=== PATIENT | female | born 1935 | race African-American/Black ===

== ENCOUNTER 2017-05-23 02:27 | Inpatient (IN) | payer MEDICARE ==
[2017-05-23] MEDS: DIPHTH,PERTUSS(ACELL),TET TOX 0.5 ML DISP.SYRIN. VAX IM (03:49)
[2017-05-23] MEDS: LIDOCAINE/EPI/TETRACAINE TOPICAL GEL 3 ML. TP (03:50)
[2017-05-23 03:52] LABS: BASO # 0.1 x10^3/uL (0.0-0.2); BASO % 0 % (0-3); EOS # 0.1 x10^3/uL (0.0-0.7); EOS % 0 % (0-3); HEMATOCRIT 30.8 % (36.0-47.0); HEMOGLOBIN 10.6 g/dL (12.0-15.5); LYMPH # 1.1 x10^3/uL (1.0-4.8); LYMPH % 5 % (24-48); MEAN CORPUSCULAR HEMOGLOBIN 30 pg (25-35); MEAN CORPUSCULAR HGB CONC 35 g/dL (31-37); MEAN CORPUSCULAR VOLUME 86 fL (79-100); MONO # 0.8 x10^3/uL (0.0-1.1); MONO % 4 % (0-9); NEUT # 19.7 x10^3uL (1.8-7.7); NEUT % 91 % (31-73); PLATELET COUNT 433 x10^3/uL (140-400); RED BLOOD COUNT 3.59 x10^6/uL (3.50-5.40); RED CELL DISTRIBUTION WIDTH 14.9 % (11.5-14.5); WHITE BLOOD COUNT 21.8 x10^3/uL (4.0-11.0)
[2017-05-23 03:57] LABS: INR 1.1 (0.8-1.1); PARTIAL THROMBOPLASTIN TIME 30 SEC (24-38); PROTHROMBIN TIME PATIENT 13.4 SEC (11.7-14.0)
[2017-05-23 03:58] LABS: ANION GAP 10 (6-14); BLOOD UREA NITROGEN 9 mg/dL (7-20); BUN/CREATININE RATIO 18 (6-20); CALCIUM 9.4 mg/dL (8.5-10.1); CARBON DIOXIDE 29 mmol/L (21-32); CHLORIDE 103 mmol/L (98-107); CREATININE 0.5 mg/dL (0.6-1.0); GFR 143.6; GLUCOSE 90 mg/dL (70-99); POTASSIUM 3.4 mmol/L (3.5-5.1); SODIUM 142 mmol/L (136-145)
[2017-05-23 03:59] LABS: ADD MAN DIFF? YES
[2017-05-23 04:04] LABS: ALBUMIN 2.9 g/dL (3.4-5.0); ALBUMIN/GLOBULIN RATIO 0.9 (1.0-1.7); ALK PHOS 178 U/L (46-116); ALT (SGPT) 75 U/L (14-59); AST (SGOT) 30 U/L (15-37); TOTAL BILIRUBIN 0.3 mg/dL (0.2-1.0); TOTAL PROTEIN 6.2 g/dL (6.4-8.2)
[2017-05-23 04:06] LABS: TROPONINI 0.025 ng/mL (0.000-0.055)
[2017-05-23 04:09] LABS: NT-PRO BNP 411 pg/mL (0-449)
[2017-05-23] MEDS ORDERED: ONDANSETRON PF 4 MG/2 ML VIAL. IV ×2 (05:45→09:00)
[2017-05-23] MEDS ORDERED: ACETAMINOPHEN 325 MG TABLET. PO ×2 (05:45→09:00)
[2017-05-23] MEDS ORDERED: MORPHINE SULFATE 2 MG/ML DISP.SYRIN. IV (05:45)
[2017-05-23 06:16] LABS: BILIRUBIN,URINE NEGATIVE (NEG); CLARITY,URINE CLEAR; COLOR,URINE YELLOW; GLUCOSE,URINE NEGATIVE (NEG); NITRITE,URINE POSITIVE (NEG); PROTEIN,URINE NEGATIVE (NEG-TRACE)
[2017-05-23 06:34] LABS: BACTERIA,URINE MANY /HPF (0-FEW); RBC,URINE 0 /HPF (0-2); SQUAMOUS EPITHELIAL CELL,UR OCC /LPF
[2017-05-23] MEDS ORDERED: MAGNESIUM HYDROXIDE 2,400 MG/30 ML ORAL.SUSP. PO (09:00)
[2017-05-23] MEDS ORDERED: CALCIUM CARBONATE 500 MG TAB.CHEW PO (09:15)
[2017-05-23] MEDS: FLU VACC QS2017-18 (36MOS+)/PF 0.5 ML SYRINGE. VAX IM (12:00)
[2017-05-23 12:33] LABS: % BANDS 8 % (0-9); % LYMPHS 5 % (24-48); % MONOS 2 % (0-10); % SEGS 85 % (35-66); PLT ESTIMATE INCREASED (ADEQUATE)
[2017-05-23] MEDS: DONEPEZIL HCL 10 MG TABLET. PO (14:26)
[2017-05-23] MEDS: DRONABINOL 2.5 MG CAPSULE. PO ×2 (14:26→17:03)
[2017-05-23] MEDS: cefTRIAXone IV Push 1 GM VIAL. IVP (14:26)
[2017-05-23] MEDS: ENOXAPARIN 30 MG/0.3 ML SYRINGE. SQ (14:26)
[2017-05-23] MEDS: FAMOTIDINE 20 MG TABLET. PO (14:27)
[2017-05-23] MEDS: POTASSIUM CHLORIDE 20 MEQ TABLET.ER. PO (14:27)
[2017-05-24 05:58] LABS: ADD MAN DIFF? NO
[2017-05-24 06:17] LABS: ANION GAP 6 (6-14); BLOOD UREA NITROGEN 10 mg/dL (7-20); CALCIUM 8.6 mg/dL (8.5-10.1); CARBON DIOXIDE 30 mmol/L (21-32); CHLORIDE 104 mmol/L (98-107); CREATININE 0.5 mg/dL (0.6-1.0); GFR 143.6; GLUCOSE 101 mg/dL (70-99); SODIUM 140 mmol/L (136-145)
[2017-05-24 06:23] LABS: BASO # 0.1 x10^3/uL (0.0-0.2); BASO % 0 % (0-3); EOS # 0.1 x10^3/uL (0.0-0.7); EOS % 1 % (0-3); HEMATOCRIT 31.2 % (36.0-47.0); HEMOGLOBIN 10.6 g/dL (12.0-15.5); LYMPH % 6 % (24-48); MEAN CORPUSCULAR HEMOGLOBIN 29 pg (25-35); MEAN CORPUSCULAR HGB CONC 34 g/dL (31-37); MEAN CORPUSCULAR VOLUME 87 fL (79-100); MONO # 0.5 x10^3/uL (0.0-1.1); MONO % 3 % (0-9); NEUT # 15.1 x10^3uL (1.8-7.7); NEUT % 90 % (31-73); PLATELET COUNT 419 x10^3/uL (140-400); RED CELL DISTRIBUTION WIDTH 15.5 % (11.5-14.5); WHITE BLOOD COUNT 16.8 x10^3/uL (4.0-11.0)
[2017-05-24 06:57] LABS: PROCALCITONIN < 0.10 ng/mL (0.00-0.10)
[2017-05-24] MEDS: cefTRIAXone IV Push 1 GM VIAL. IVP (09:32)
[2017-05-24] MEDS: DONEPEZIL HCL 10 MG TABLET. PO (09:33)
[2017-05-24] MEDS: ENOXAPARIN 30 MG/0.3 ML SYRINGE. SQ (09:33)
[2017-05-24] MEDS: FAMOTIDINE 20 MG TABLET. PO (09:33)
[2017-05-24] MEDS: DRONABINOL 2.5 MG CAPSULE. PO ×2 (12:13→17:50)
[2017-05-24] MEDS: LACTOBACILLUS RHAMNOSUS GG 1 CAPSULE. PO (20:45)
[2017-05-24 21:10] LABS: MRSA BY PCR Negative (Negative)
[2017-05-25 05:46] LABS: ADD MAN DIFF? NO
[2017-05-25 06:05] LABS: BASO % 0 % (0-3); EOS % 0 % (0-3); HEMATOCRIT 28.9 % (36.0-47.0); LYMPH # 0.5 x10^3/uL (1.0-4.8); LYMPH % 3 % (24-48); MEAN CORPUSCULAR HEMOGLOBIN 30 pg (25-35); MEAN CORPUSCULAR HGB CONC 35 g/dL (31-37); MEAN CORPUSCULAR VOLUME 86 fL (79-100); MONO # 0.8 x10^3/uL (0.0-1.1); MONO % 4 % (0-9); NEUT # 18.3 x10^3uL (1.8-7.7); NEUT % 93 % (31-73); PLATELET COUNT 378 x10^3/uL (140-400); RED BLOOD COUNT 3.36 x10^6/uL (3.50-5.40); RED CELL DISTRIBUTION WIDTH 15.6 % (11.5-14.5); WHITE BLOOD COUNT 19.7 x10^3/uL (4.0-11.0)
[2017-05-25] MEDS: FAMOTIDINE 20 MG TABLET. PO (09:14)
[2017-05-25] MEDS: DONEPEZIL HCL 10 MG TABLET. PO (09:14)
[2017-05-25] MEDS: LACTOBACILLUS RHAMNOSUS GG 1 CAPSULE. PO ×2 (09:14→20:49)
[2017-05-25] MEDS: ENOXAPARIN 30 MG/0.3 ML SYRINGE. SQ (09:14)
[2017-05-25] MEDS: cefTRIAXone IV Push 1 GM VIAL. IVP (09:25)
[2017-05-25] MEDS: MEROPENEM IV Push 1 GM VIAL. IVP ×2 (12:43→20:55)
[2017-05-25] MEDS: DRONABINOL 2.5 MG CAPSULE. PO ×2 (12:48→17:10)
[2017-05-25] MEDS ORDERED: MEROPENEM 1 GM in IV NORMAL SALINE 100ML 100 ML IV (14:00)
[2017-05-26 05:15] LABS: ADD MAN DIFF? NO
[2017-05-26 05:34] LABS: BASO % 0 % (0-3); EOS % 0 % (0-3); HEMATOCRIT 27.9 % (36.0-47.0); HEMOGLOBIN 9.5 g/dL (12.0-15.5); LYMPH # 0.4 x10^3/uL (1.0-4.8); LYMPH % 2 % (24-48); MEAN CORPUSCULAR HEMOGLOBIN 29 pg (25-35); MEAN CORPUSCULAR HGB CONC 34 g/dL (31-37); MEAN CORPUSCULAR VOLUME 84 fL (79-100); MONO # 0.8 x10^3/uL (0.0-1.1); MONO % 4 % (0-9); NEUT # 19.9 x10^3uL (1.8-7.7); NEUT % 94 % (31-73); PLATELET COUNT 356 x10^3/uL (140-400); RED BLOOD COUNT 3.32 x10^6/uL (3.50-5.40); RED CELL DISTRIBUTION WIDTH 15.4 % (11.5-14.5); WHITE BLOOD COUNT 21.2 x10^3/uL (4.0-11.0)
[2017-05-26] MEDS: FAMOTIDINE 20 MG TABLET. PO (09:00)
[2017-05-26] MEDS: DONEPEZIL HCL 10 MG TABLET. PO (09:00)
[2017-05-26] MEDS: LACTOBACILLUS RHAMNOSUS GG 1 CAPSULE. PO ×2 (09:00→20:57)
[2017-05-26] MEDS: ENOXAPARIN 30 MG/0.3 ML SYRINGE. SQ (09:21)
[2017-05-26] MEDS: MEROPENEM IV Push 1 GM VIAL. IVP ×2 (09:21→20:57)
[2017-05-26] MEDS: DRONABINOL 2.5 MG CAPSULE. PO ×2 (11:30→16:30)
[2017-05-26] MEDS: AMINO AC 3%/ELECTROLYTE/GLYCER 1,000 ML IV (14:36)
[2017-05-27] MEDS: AMINO AC 3%/ELECTROLYTE/GLYCER 1,000 ML IV ×2 (02:54→14:25)
[2017-05-27] MEDS: LACTOBACILLUS RHAMNOSUS GG 1 CAPSULE. PO ×2 (09:00→21:00)
[2017-05-27] MEDS: FAMOTIDINE 20 MG TABLET. PO (09:00)
[2017-05-27] MEDS: DONEPEZIL HCL 10 MG TABLET. PO (09:00)
[2017-05-27] MEDS: MEROPENEM IV Push 1 GM VIAL. IVP (09:48)
[2017-05-27] MEDS: DRONABINOL 2.5 MG CAPSULE. PO ×2 (10:58→15:37)
[2017-05-27] MEDS: ENOXAPARIN 30 MG/0.3 ML SYRINGE. SQ (11:52)
[2017-05-27] MEDS: cefTRIAXone IV Push 1 GM VIAL. IVP (14:25)
[2017-05-28] MEDS: AMINO AC 3%/ELECTROLYTE/GLYCER 1,000 ML IV ×2 (03:55→14:27)
[2017-05-28] MEDS: LACTOBACILLUS RHAMNOSUS GG 1 CAPSULE. PO ×2 (09:05→20:27)
[2017-05-28] MEDS: DONEPEZIL HCL 10 MG TABLET. PO (09:05)
[2017-05-28] MEDS: FAMOTIDINE 20 MG TABLET. PO (09:05)
[2017-05-28] MEDS: ENOXAPARIN 30 MG/0.3 ML SYRINGE. SQ (09:52)
[2017-05-28] MEDS: DRONABINOL 2.5 MG CAPSULE. PO ×2 (11:30→15:31)
[2017-05-28] MEDS: cefTRIAXone IV Push 1 GM VIAL. IVP (14:27)
[2017-05-29] MEDS: AMINO AC 3%/ELECTROLYTE/GLYCER 1,000 ML IV ×2 (03:00→16:02)
[2017-05-29] MEDS: DONEPEZIL HCL 10 MG TABLET. PO (08:39)
[2017-05-29] MEDS: FAMOTIDINE 20 MG TABLET. PO (08:39)
[2017-05-29] MEDS: LACTOBACILLUS RHAMNOSUS GG 1 CAPSULE. PO (08:39)
[2017-05-29] MEDS: ENOXAPARIN 30 MG/0.3 ML SYRINGE. SQ (08:39)
[2017-05-29] MEDS: DRONABINOL 2.5 MG CAPSULE. PO ×2 (11:07→16:02)
[2017-05-29] MEDS: cefTRIAXone IV Push 1 GM VIAL. IVP (13:55)
[2017-05-29] MEDS ORDERED: DEXTROSE 50% 25 GM / 50ML DISP.SYRIN. IV (20:51)
[2017-05-29 20:59] LABS: POC GLUCOSE 34 mg/dL (70-99)
[2017-05-29 20:59] LABS: POC GLUCOSE 35 mg/dL (70-99)
[2017-05-29] MEDS: DEXTROSE 50% 25 GM / 50ML DISP.SYRIN. IV (21:08)
[2017-05-29 21:47] LABS: POC GLUCOSE 24 mg/dL (70-99)
[2017-05-29 21:47] LABS: POC GLUCOSE 31 mg/dL (70-99)
[2017-05-29 21:47] LABS: POC GLUCOSE 93 mg/dL (70-99)
[2017-05-29 22:13] LABS: GLUCOSE 183 mg/dL (70-99)
[2017-05-30] MEDS: AMINO AC 3%/ELECTROLYTE/GLYCER 1,000 ML IV ×2 (04:04→16:13)
[2017-05-30 08:04] LABS: POC GLUCOSE 62 mg/dL (70-99)
[2017-05-30] MEDS: FAMOTIDINE 20 MG TABLET. PO (09:00)
[2017-05-30] MEDS: DONEPEZIL HCL 10 MG TABLET. PO (09:00)
[2017-05-30] MEDS: ENOXAPARIN 30 MG/0.3 ML SYRINGE. SQ (09:18)
[2017-05-30] MEDS: DEXTROSE 50% 25 GM / 50ML DISP.SYRIN. IV (09:24)
[2017-05-30 09:26] LABS: POC GLUCOSE 53 mg/dL (70-99)
[2017-05-30 11:12] LABS: POC GLUCOSE 68 mg/dL (70-99)
[2017-05-30] MEDS: DRONABINOL 2.5 MG CAPSULE. PO ×2 (11:30→16:15)
[2017-05-30 16:27] LABS: POC GLUCOSE 11 mg/dL (70-99)
[2017-05-30 17:28] LABS: GLUCOSE 82 mg/dL (70-99)
[2017-05-31 08:28] LABS: POC GLUCOSE 93 mg/dL (70-99)
[2017-05-31] MEDS: ENOXAPARIN 30 MG/0.3 ML SYRINGE. SQ (09:55)
[2017-05-31] MEDS: AMINO AC 3%/ELECTROLYTE/GLYCER 1,000 ML IV ×2 (09:56→19:54)
[2017-05-31] MEDS: DONEPEZIL HCL 10 MG TABLET. PO (09:57)
[2017-05-31] MEDS: FAMOTIDINE 20 MG TABLET. PO (09:57)
[2017-05-31] MEDS: DRONABINOL 2.5 MG CAPSULE. PO ×2 (11:22→16:20)
[2017-05-31] MEDS: DEXTROSE 50% 25 GM / 50ML DISP.SYRIN. IV ×2 (11:32→12:23)
[2017-05-31 12:16] LABS: POC GLUCOSE 18 mg/dL (70-99)
[2017-05-31 12:54] LABS: ANION GAP 3 (6-14); BLOOD UREA NITROGEN 15 mg/dL (7-20); CALCIUM 7.8 mg/dL (8.5-10.1); CARBON DIOXIDE 30 mmol/L (21-32); CHLORIDE 100 mmol/L (98-107); CREATININE 0.4 mg/dL (0.6-1.0); GFR 185.8; GLUCOSE 369 mg/dL (70-99); POTASSIUM 4.1 mmol/L (3.5-5.1); SODIUM 133 mmol/L (136-145)
[2017-05-31 13:05] LABS: POC GLUCOSE 124 mg/dL (70-99); POC GLUCOSE 126 mg/dL (70-99)
[2017-05-31 13:30] LABS: POC GLUCOSE 107 mg/dL (70-99)
[2017-05-31 16:26] LABS: POC GLUCOSE 31 mg/dL (70-99)
[2017-05-31 16:51] LABS: GLUCOSE 73 mg/dL (70-99)
[2017-05-31 21:19] LABS: POC GLUCOSE 47 mg/dL (70-99)
[2017-05-31 21:22] LABS: GLUCOSE 79 mg/dL (70-99)
[2017-06-01] MEDS: AMINO AC 3%/ELECTROLYTE/GLYCER 1,000 ML IV ×2 (06:04→17:45)
[2017-06-01] MEDS: DONEPEZIL HCL 10 MG TABLET. PO (08:59)
[2017-06-01] MEDS: ENOXAPARIN 30 MG/0.3 ML SYRINGE. SQ (08:59)
[2017-06-01] MEDS: FAMOTIDINE 20 MG TABLET. PO (08:59)
[2017-06-01] MEDS: DRONABINOL 2.5 MG CAPSULE. PO ×2 (10:51→15:21)
[2017-06-01 21:15] LABS: POC GLUCOSE 58 mg/dL (70-99)
[2017-06-01 21:36] LABS: POC GLUCOSE 71 mg/dL (70-99)
[2017-06-01 21:36] LABS: POC GLUCOSE 69 mg/dL (70-99)
[2017-06-02] MEDS ORDERED: fentaNYL PF VIAL 100 MCG/2 ML VIAL IV ×2 (07:00)
[2017-06-02] MEDS ORDERED: MORPHINE SULFATE 2 MG/ML DISP.SYRIN. IV (07:00)
[2017-06-02] MEDS ORDERED: LIDOCAINE 1% PF 2 ML VIAL. ID (07:00)
[2017-06-02] MEDS ORDERED: PROCHLORPERAZINE 10 MG/2 ML VIAL. IV (07:00)
[2017-06-02] MEDS: IV RINGERS,LACTATED 1000ML 1,000 ML IV ×3 (07:00→18:30)
[2017-06-02] MEDS ORDERED: HYDROmorphone 2 MG/ML VIAL IV (07:00)
[2017-06-02 08:29] LABS: POC GLUCOSE 68 mg/dL (70-99)
[2017-06-02] MEDS: ENOXAPARIN 30 MG/0.3 ML SYRINGE. SQ ×2 (08:51→10:21)
[2017-06-02] MEDS: FAMOTIDINE 20 MG TABLET. PO ×2 (08:51→10:21)
[2017-06-02] MEDS: DONEPEZIL HCL 10 MG TABLET. PO (08:51)
[2017-06-02] MEDS ORDERED: PROPOFOL 20 ML IV (09:22)
[2017-06-02] MEDS ORDERED: LIDOCAINE 2% 100 MG/5 ML SYRINGE. (09:22)
[2017-06-02] MEDS: AMINO AC 3%/ELECTROLYTE/GLYCER 1,000 ML IV ×2 (10:33→21:55)
[2017-06-02 12:32] LABS: POC GLUCOSE 10 mg/dL (70-99)
[2017-06-03] MEDS: IV RINGERS,LACTATED 1000ML 1,000 ML IV ×3 (04:30→21:37)
[2017-06-03] MEDS: AMINO AC 3%/ELECTROLYTE/GLYCER 1,000 ML IV ×2 (08:07→22:00)
[2017-06-04] MEDS: PANTOPRAZOLE IV PUSH 40 MG VIAL. IVP (09:29)
[2017-06-04] MEDS: IV RINGERS,LACTATED 1000ML 1,000 ML IV ×2 (10:30→20:30)
[2017-06-04] MEDS: AMINO AC 3%/ELECTROLYTE/GLYCER 1,000 ML IV ×2 (11:25→23:00)
[2017-06-04 21:14] LABS: POC GLUCOSE 67 mg/dL (70-99)
[2017-06-05] MEDS: IV RINGERS,LACTATED 1000ML 1,000 ML IV ×3 (05:29→17:41)
[2017-06-05] MEDS: PANTOPRAZOLE IV PUSH 40 MG VIAL. IVP (09:11)
[2017-06-05] MEDS: AMINO AC 3%/ELECTROLYTE/GLYCER 1,000 ML IV (09:16)
[2017-06-05 09:31] LABS: ADD MAN DIFF? NO
[2017-06-05 09:37] LABS: BASO # 0.1 x10^3/uL (0.0-0.2); BASO % 0 % (0-3); EOS # 0.1 x10^3/uL (0.0-0.7); EOS % 1 % (0-3); HEMATOCRIT 26.9 % (36.0-47.0); HEMOGLOBIN 8.9 g/dL (12.0-15.5); LYMPH # 1.8 x10^3/uL (1.0-4.8); LYMPH % 12 % (24-48); MEAN CORPUSCULAR HEMOGLOBIN 28 pg (25-35); MEAN CORPUSCULAR HGB CONC 33 g/dL (31-37); MEAN CORPUSCULAR VOLUME 85 fL (79-100); MONO # 1.2 x10^3/uL (0.0-1.1); MONO % 8 % (0-9); NEUT # 12.3 x10^3uL (1.8-7.7); NEUT % 80 % (31-73); PLATELET COUNT 452 x10^3/uL (140-400); RED BLOOD COUNT 3.17 x10^6/uL (3.50-5.40); RED CELL DISTRIBUTION WIDTH 16.5 % (11.5-14.5); WHITE BLOOD COUNT 15.4 x10^3/uL (4.0-11.0)
[2017-06-05 09:47] LABS: ANION GAP 5 (6-14); BLOOD UREA NITROGEN 17 mg/dL (7-20); CALCIUM 8.3 mg/dL (8.5-10.1); CARBON DIOXIDE 27 mmol/L (21-32); CHLORIDE 102 mmol/L (98-107); CREATININE 0.4 mg/dL (0.6-1.0); GFR 185.8; GLUCOSE 75 mg/dL (70-99); POTASSIUM 4.7 mmol/L (3.5-5.1); SODIUM 134 mmol/L (136-145)
[2017-06-06] MEDS: IV RINGERS,LACTATED 1000ML 1,000 ML IV (02:30)
[2017-06-06 04:50] LABS: ADD MAN DIFF? NO
[2017-06-06 05:02] LABS: BASO # 0.1 x10^3/uL (0.0-0.2); BASO % 0 % (0-3); EOS # 0.1 x10^3/uL (0.0-0.7); EOS % 1 % (0-3); HEMOGLOBIN 9.1 g/dL (12.0-15.5); LYMPH # 1.4 x10^3/uL (1.0-4.8); LYMPH % 11 % (24-48); MEAN CORPUSCULAR HEMOGLOBIN 29 pg (25-35); MEAN CORPUSCULAR HGB CONC 34 g/dL (31-37); MEAN CORPUSCULAR VOLUME 85 fL (79-100); MONO % 8 % (0-9); NEUT # 9.9 x10^3uL (1.8-7.7); NEUT % 80 % (31-73); PLATELET COUNT 497 x10^3/uL (140-400); RED BLOOD COUNT 3.19 x10^6/uL (3.50-5.40); RED CELL DISTRIBUTION WIDTH 16.2 % (11.5-14.5); WHITE BLOOD COUNT 12.4 x10^3/uL (4.0-11.0)
[2017-06-06 05:35] LABS: ALBUMIN 1.9 g/dL (3.4-5.0); ALBUMIN/GLOBULIN RATIO 0.5 (1.0-1.7); ALK PHOS 107 U/L (46-116); ALT (SGPT) 24 U/L (14-59); ANION GAP 7 (6-14); AST (SGOT) 24 U/L (15-37); BLOOD UREA NITROGEN 15 mg/dL (7-20); BUN/CREATININE RATIO 30 (6-20); CARBON DIOXIDE 26 mmol/L (21-32); CHLORIDE 103 mmol/L (98-107); CREATININE 0.5 mg/dL (0.6-1.0); GFR 143.6; GLUCOSE 75 mg/dL (70-99); POTASSIUM 4.2 mmol/L (3.5-5.1); SODIUM 136 mmol/L (136-145); TOTAL BILIRUBIN 0.4 mg/dL (0.2-1.0); TOTAL PROTEIN 5.8 g/dL (6.4-8.2)
[2017-06-06] MEDS: PANTOPRAZOLE IV PUSH 40 MG VIAL. IVP (06:36)
[2017-06-06] MEDS: AMINO AC 3%/ELECTROLYTE/GLYCER 1,000 ML IV ×3 (12:30→17:47)
[2017-06-07 04:50] LABS: ADD MAN DIFF? NO
[2017-06-07 05:05] LABS: BASO % 0 % (0-3); EOS # 0.1 x10^3/uL (0.0-0.7); EOS % 1 % (0-3); HEMATOCRIT 26.9 % (36.0-47.0); HEMOGLOBIN 9.3 g/dL (12.0-15.5); LYMPH # 1.3 x10^3/uL (1.0-4.8); LYMPH % 13 % (24-48); MEAN CORPUSCULAR HEMOGLOBIN 29 pg (25-35); MEAN CORPUSCULAR HGB CONC 34 g/dL (31-37); MEAN CORPUSCULAR VOLUME 84 fL (79-100); MONO # 1.1 x10^3/uL (0.0-1.1); MONO % 10 % (0-9); NEUT # 8.3 x10^3uL (1.8-7.7); NEUT % 77 % (31-73); PLATELET COUNT 497 x10^3/uL (140-400); RED BLOOD COUNT 3.22 x10^6/uL (3.50-5.40); RED CELL DISTRIBUTION WIDTH 16.3 % (11.5-14.5); WHITE BLOOD COUNT 10.8 x10^3/uL (4.0-11.0)
[2017-06-07 05:25] LABS: ALBUMIN 1.9 g/dL (3.4-5.0); ALBUMIN/GLOBULIN RATIO 0.5 (1.0-1.7); ALK PHOS 95 U/L (46-116); ALT (SGPT) 21 U/L (14-59); ANION GAP 5 (6-14); AST (SGOT) 20 U/L (15-37); BLOOD UREA NITROGEN 14 mg/dL (7-20); BUN/CREATININE RATIO 35 (6-20); CALCIUM 8.4 mg/dL (8.5-10.1); CARBON DIOXIDE 28 mmol/L (21-32); CHLORIDE 101 mmol/L (98-107); CREATININE 0.4 mg/dL (0.6-1.0); GFR 185.8; GLUCOSE 76 mg/dL (70-99); SODIUM 134 mmol/L (136-145); TOTAL BILIRUBIN 0.3 mg/dL (0.2-1.0); TOTAL PROTEIN 5.6 g/dL (6.4-8.2)
[2017-06-07] MEDS: PANTOPRAZOLE IV PUSH 40 MG VIAL. IVP (08:57)
[2017-06-07] MEDS: AMINO AC 3%/ELECTROLYTE/GLYCER 1,000 ML IV ×2 (13:30→17:54)
[2017-06-08] MEDS: AMINO AC 3%/ELECTROLYTE/GLYCER 1,000 ML IV (05:24)
[2017-06-08] MEDS: PANTOPRAZOLE IV PUSH 40 MG VIAL. IVP (05:24)
[2017-06-08 06:05] LABS: ADD MAN DIFF? NO
[2017-06-08 06:33] LABS: BASO % 1 % (0-3); EOS # 0.1 x10^3/uL (0.0-0.7); EOS % 1 % (0-3); HEMATOCRIT 26.7 % (36.0-47.0); LYMPH # 1.4 x10^3/uL (1.0-4.8); LYMPH % 14 % (24-48); MEAN CORPUSCULAR HEMOGLOBIN 29 pg (25-35); MEAN CORPUSCULAR HGB CONC 34 g/dL (31-37); MEAN CORPUSCULAR VOLUME 84 fL (79-100); MONO % 10 % (0-9); NEUT # 7.1 x10^3uL (1.8-7.7); NEUT % 74 % (31-73); PLATELET COUNT 447 x10^3/uL (140-400); RED BLOOD COUNT 3.16 x10^6/uL (3.50-5.40); RED CELL DISTRIBUTION WIDTH 16.2 % (11.5-14.5); WHITE BLOOD COUNT 9.6 x10^3/uL (4.0-11.0)
[2017-06-08 06:40] LABS: ALBUMIN 1.8 g/dL (3.4-5.0); ALBUMIN/GLOBULIN RATIO 0.5 (1.0-1.7); ALK PHOS 89 U/L (46-116); ALT (SGPT) 20 U/L (14-59); ANION GAP 5 (6-14); AST (SGOT) 20 U/L (15-37); BLOOD UREA NITROGEN 16 mg/dL (7-20); BUN/CREATININE RATIO 40 (6-20); CALCIUM 8.4 mg/dL (8.5-10.1); CARBON DIOXIDE 28 mmol/L (21-32); CHLORIDE 102 mmol/L (98-107); CREATININE 0.4 mg/dL (0.6-1.0); GFR 185.8; GLUCOSE 79 mg/dL (70-99); POTASSIUM 4.2 mmol/L (3.5-5.1); SODIUM 135 mmol/L (136-145); TOTAL BILIRUBIN 0.2 mg/dL (0.2-1.0); TOTAL PROTEIN 5.6 g/dL (6.4-8.2)
[2017-06-09] MEDS: PANTOPRAZOLE IV PUSH 40 MG VIAL. IVP (01:37)
[2017-06-09] MEDS: AMINO AC 3%/ELECTROLYTE/GLYCER 1,000 ML IV (01:37)
[2017-06-09 06:16] LABS: ADD MAN DIFF? NO
[2017-06-09 06:23] LABS: BASO # 0.1 x10^3/uL (0.0-0.2); BASO % 1 % (0-3); EOS # 0.1 x10^3/uL (0.0-0.7); EOS % 1 % (0-3); HEMOGLOBIN 9.4 g/dL (12.0-15.5); LYMPH # 1.7 x10^3/uL (1.0-4.8); LYMPH % 19 % (24-48); MEAN CORPUSCULAR HEMOGLOBIN 28 pg (25-35); MEAN CORPUSCULAR HGB CONC 34 g/dL (31-37); MEAN CORPUSCULAR VOLUME 85 fL (79-100); MONO # 0.9 x10^3/uL (0.0-1.1); MONO % 10 % (0-9); NEUT # 6.2 x10^3uL (1.8-7.7); NEUT % 69 % (31-73); PLATELET COUNT 450 x10^3/uL (140-400); RED BLOOD COUNT 3.31 x10^6/uL (3.50-5.40); RED CELL DISTRIBUTION WIDTH 16.3 % (11.5-14.5); WHITE BLOOD COUNT 8.9 x10^3/uL (4.0-11.0)
[2017-06-09 06:40] LABS: ALBUMIN/GLOBULIN RATIO 0.5 (1.0-1.7); ALK PHOS 102 U/L (46-116); ALT (SGPT) 22 U/L (14-59); ANION GAP 5 (6-14); AST (SGOT) 26 U/L (15-37); BLOOD UREA NITROGEN 14 mg/dL (7-20); BUN/CREATININE RATIO 35 (6-20); CALCIUM 8.6 mg/dL (8.5-10.1); CARBON DIOXIDE 27 mmol/L (21-32); CHLORIDE 103 mmol/L (98-107); CREATININE 0.4 mg/dL (0.6-1.0); GFR 185.8; GLUCOSE 59 mg/dL (70-99); SODIUM 135 mmol/L (136-145); TOTAL BILIRUBIN 0.4 mg/dL (0.2-1.0); TOTAL PROTEIN 5.8 g/dL (6.4-8.2)
[2017-06-09] MEDS: ENOXAPARIN 30 MG/0.3 ML SYRINGE. SQ (14:00)
[2017-06-10] MEDS: PANTOPRAZOLE IV PUSH 40 MG VIAL. IVP (07:30)
[2017-06-10 09:11] LABS: ADD MAN DIFF? NO
[2017-06-10 09:14] LABS: BASO # 0.1 x10^3/uL (0.0-0.2); BASO % 1 % (0-3); EOS % 1 % (0-3); HEMATOCRIT 28.6 % (36.0-47.0); HEMOGLOBIN 9.9 g/dL (12.0-15.5); LYMPH # 1.2 x10^3/uL (1.0-4.8); LYMPH % 14 % (24-48); MEAN CORPUSCULAR HEMOGLOBIN 29 pg (25-35); MEAN CORPUSCULAR HGB CONC 35 g/dL (31-37); MEAN CORPUSCULAR VOLUME 84 fL (79-100); MONO # 0.7 x10^3/uL (0.0-1.1); MONO % 8 % (0-9); NEUT # 6.3 x10^3uL (1.8-7.7); NEUT % 76 % (31-73); PLATELET COUNT 534 x10^3/uL (140-400); RED BLOOD COUNT 3.42 x10^6/uL (3.50-5.40); WHITE BLOOD COUNT 8.3 x10^3/uL (4.0-11.0)
[2017-06-10 09:39] LABS: ALBUMIN 2.2 g/dL (3.4-5.0); ALBUMIN/GLOBULIN RATIO 0.6 (1.0-1.7); ALK PHOS 119 U/L (46-116); ALT (SGPT) 21 U/L (14-59); ANION GAP 6 (6-14); AST (SGOT) 23 U/L (15-37); BLOOD UREA NITROGEN 19 mg/dL (7-20); BUN/CREATININE RATIO 38 (6-20); CALCIUM 9.1 mg/dL (8.5-10.1); CARBON DIOXIDE 27 mmol/L (21-32); CHLORIDE 106 mmol/L (98-107); CREATININE 0.5 mg/dL (0.6-1.0); GFR 143.6; GLUCOSE 84 mg/dL (70-99); POTASSIUM 3.7 mmol/L (3.5-5.1); SODIUM 139 mmol/L (136-145); TOTAL BILIRUBIN 0.4 mg/dL (0.2-1.0); TOTAL PROTEIN 6.1 g/dL (6.4-8.2)
[2017-06-10] MEDS: ENOXAPARIN 30 MG/0.3 ML SYRINGE. SQ (15:04)
[2017-06-11 05:26] LABS: ADD MAN DIFF? NO
[2017-06-11 05:38] LABS: BASO # 0.1 x10^3/uL (0.0-0.2); BASO % 1 % (0-3); EOS % 1 % (0-3); HEMATOCRIT 27.5 % (36.0-47.0); HEMOGLOBIN 9.3 g/dL (12.0-15.5); LYMPH # 1.8 x10^3/uL (1.0-4.8); LYMPH % 23 % (24-48); MEAN CORPUSCULAR HEMOGLOBIN 29 pg (25-35); MEAN CORPUSCULAR HGB CONC 34 g/dL (31-37); MEAN CORPUSCULAR VOLUME 84 fL (79-100); MONO # 0.8 x10^3/uL (0.0-1.1); MONO % 10 % (0-9); NEUT # 5.4 x10^3uL (1.8-7.7); NEUT % 66 % (31-73); PLATELET COUNT 506 x10^3/uL (140-400); RED BLOOD COUNT 3.27 x10^6/uL (3.50-5.40); RED CELL DISTRIBUTION WIDTH 16.3 % (11.5-14.5); WHITE BLOOD COUNT 8.1 x10^3/uL (4.0-11.0)
[2017-06-11 06:13] LABS: ALBUMIN 2.2 g/dL (3.4-5.0); ALBUMIN/GLOBULIN RATIO 0.6 (1.0-1.7); ALK PHOS 112 U/L (46-116); ALT (SGPT) 17 U/L (14-59); ANION GAP 7 (6-14); AST (SGOT) 19 U/L (15-37); BLOOD UREA NITROGEN 18 mg/dL (7-20); BUN/CREATININE RATIO 36 (6-20); CARBON DIOXIDE 27 mmol/L (21-32); CHLORIDE 107 mmol/L (98-107); CREATININE 0.5 mg/dL (0.6-1.0); GFR 143.6; GLUCOSE 81 mg/dL (70-99); POTASSIUM 3.7 mmol/L (3.5-5.1); SODIUM 141 mmol/L (136-145); TOTAL BILIRUBIN 0.4 mg/dL (0.2-1.0); TOTAL PROTEIN 5.8 g/dL (6.4-8.2)
[2017-06-11] MEDS: PANTOPRAZOLE IV PUSH 40 MG VIAL. IVP (07:30)
[2017-06-11] MEDS: ENOXAPARIN 30 MG/0.3 ML SYRINGE. SQ (14:06)
[2017-06-12 04:42] LABS: ADD MAN DIFF? NO
[2017-06-12 04:57] LABS: BASO # 0.1 x10^3/uL (0.0-0.2); BASO % 1 % (0-3); EOS # 0.1 x10^3/uL (0.0-0.7); EOS % 1 % (0-3); HEMATOCRIT 29.3 % (36.0-47.0); HEMOGLOBIN 9.9 g/dL (12.0-15.5); LYMPH # 2.1 x10^3/uL (1.0-4.8); LYMPH % 28 % (24-48); MEAN CORPUSCULAR HEMOGLOBIN 29 pg (25-35); MEAN CORPUSCULAR HGB CONC 34 g/dL (31-37); MEAN CORPUSCULAR VOLUME 86 fL (79-100); MONO # 0.7 x10^3/uL (0.0-1.1); MONO % 9 % (0-9); NEUT # 4.6 x10^3uL (1.8-7.7); NEUT % 62 % (31-73); PLATELET COUNT 462 x10^3/uL (140-400); RED CELL DISTRIBUTION WIDTH 16.6 % (11.5-14.5); WHITE BLOOD COUNT 7.5 x10^3/uL (4.0-11.0)
[2017-06-12 05:15] LABS: ALBUMIN 2.3 g/dL (3.4-5.0); ALBUMIN/GLOBULIN RATIO 0.7 (1.0-1.7); ALK PHOS 107 U/L (46-116); ALT (SGPT) 18 U/L (14-59); ANION GAP 9 (6-14); AST (SGOT) 23 U/L (15-37); BLOOD UREA NITROGEN 15 mg/dL (7-20); BUN/CREATININE RATIO 30 (6-20); CALCIUM 8.6 mg/dL (8.5-10.1); CARBON DIOXIDE 26 mmol/L (21-32); CHLORIDE 105 mmol/L (98-107); CREATININE 0.5 mg/dL (0.6-1.0); GFR 143.6; GLUCOSE 64 mg/dL (70-99); POTASSIUM 4.2 mmol/L (3.5-5.1); SODIUM 140 mmol/L (136-145); TOTAL BILIRUBIN 0.4 mg/dL (0.2-1.0); TOTAL PROTEIN 5.7 g/dL (6.4-8.2)
[2017-06-12] MEDS: PANTOPRAZOLE IV PUSH 40 MG VIAL. IVP (07:30)
[2017-06-12] MEDS ORDERED: ACETAMINOPHEN 500 MG TABLET PO (10:00)
[2017-06-12] MEDS: hydroCHLOROthiazide 12.5 MG CAPSULE PO (10:30)
[2017-06-12] MEDS: MULTIVITAMIN with MINERAL TABLET. PO (11:34)
[2017-06-12] MEDS: ENOXAPARIN 30 MG/0.3 ML SYRINGE. SQ (13:40)
== END 2017-06-12 16:30 | DRG 853 ==
LOC: ER 02:27 → 4 NORTH 05:16
PROC: 0DB68ZX Excision of Stomach, Via Natural or Artificial Opening Endoscopic, Diagnostic (ICD-10-PCS; principal; 2017-06-02 09:33)
PROC: 0WQ0XZZ Repair Head, External Approach (ICD-10-PCS; 2017-06-02 09:33)
DX: A41.9 Sepsis, unspecified organism (principal); E43 Unspecified severe protein-calorie malnutrition; G93.41 Metabolic encephalopathy; K55.1 Chronic vascular disorders of intestine; K27.4 Chronic or unspecified peptic ulcer, site unspecified, with hemorrhage; N39.0 Urinary tract infection, site not specified; G30.9 Alzheimer's disease, unspecified; F02.80 Dementia in other diseases classified elsewhere, unspecified severity, without behavioral disturbance, psychotic disturbance, mood disturbance, and anxiety; R64 Cachexia; Z68.1 Body mass index [BMI] 19.9 or less, adult; R65.10 Systemic inflammatory response syndrome (SIRS) of non-infectious origin without acute organ dysfunction; R13.12 Dysphagia, oropharyngeal phase; R55 Syncope and collapse; S01.01XA Laceration without foreign body of scalp, initial encounter; B96.20 Unspecified Escherichia coli [E. coli] as the cause of diseases classified elsewhere; E16.2 Hypoglycemia, unspecified; I10 Essential (primary) hypertension; K21.9 Gastro-esophageal reflux disease without esophagitis; R62.7 Adult failure to thrive; S01.81XA Laceration without foreign body of other part of head, initial encounter; Z66 Do not resuscitate; Z51.5 Encounter for palliative care; W18.39XA Other fall on same level, initial encounter; Y93.89 Activity, other specified; Y92.89 Other specified places as the place of occurrence of the external cause; Y99.8 Other external cause status; I70.8 Atherosclerosis of other arteries
CPT/HCPCS: 36415; 70450; 70486; 71045; 72125; 80048; 80053; 81001; 82947; 82962; 83880; 84145; 84484; 85007; 85025; 85610; 85730; 87086; 87186; 87641; 88305; 88342; 90471; 90715; 92526-GN; 92610-GN; 93005; 97162-GP; 97166-GO; 97530-GP; 99285; 99285-25; C9113; J0696; J1650; J2185; J2704; J7042; J7120; Q0167